=== PATIENT | female | born 1965 ===

== ENCOUNTER 2024-06-04 06:19 | Day surgery (SDC) | payer BC, SELFPAY ==
[2024-06-04 10:52] LABS: Glucose - Point of Care 96 mg/dl (70-99)
== END 2024-06-04 13:02 | disposition home or self-care (01) ==
LOC: GI 06:19
PROVIDERS: ATTENDING PHYSICIAN Internal Medicine Gastroenterology
DX: Z12.11 Encounter for screening for malignant neoplasm of colon (principal); K64.8 Other hemorrhoids; K57.30 Diverticulosis of large intestine without perforation or abscess without bleeding; Z86.0100 Personal history of colon polyps, unspecified
CPT/HCPCS: G0105; 82962